=== PATIENT | male | born 1980 | race African-American/Black ===

== ENCOUNTER 2018-06-23 22:53 | Emergency (ER) | payer MEDICAID, OTHER ==
[~2018-06-23] VITALS: Ht 170.2 cm; Wt 88.5 kg
[2018-06-23 23:13] VITALS: BP 120/80
[2018-06-23] MEDS ORDERED: Norco 5mg/325mg tab ORAL ONE (23:15)
[2018-06-24] MEDS ORDERED: HYDROCODON-ACE1 EA15 ORAL (00:26)
[2018-06-24] MEDS ORDERED: IBUPROFEN600 MG ORAL (00:26)
--- NOTE | 2018-06-24 00:27 | Emergency Room Report ---
History of Present Illness General Chief Complaint: Upper Extremity Injury Source: Patient Present Illness HPI Is a 38-year-old male with no cerumen past medical history. He presents with head injury and right wrist pain. He said that he was on the porch try to get something down and fell. He said he hit his head and his right wrist. He said he had a loss of consciousness for split-second. Pain is 9 out of 10. Worse with movement. No nausea no vomiting no fever chills. Denies any other complaint. Allergies: Coded Allergies: No Known Allergies (Unverified , 06/23/18) Patient History Past Medical History: see triage record, old chart reviewed Past Surgical History: other Pertinent Family History: none Social History: Reports: alcohol use Immunizations: other Reviewed Nursing Documentation: PMH: Agreed; PSxH: Agreed Nursing Documentation-PMH Hx Hypertension: Yes Hx Diabetes: Yes Review of Systems Eye: Denies: eye pain, blurred vision ENT: Denies: ear pain, nose congestion, throat swelling Respiratory: Denies: cough, shortness of breath Cardiovascular: Denies: chest pain, palpitations Gastrointestinal: Denies: abdominal pain, diarrhea, nausea, vomiting Musculoskeletal: Reports: joint pain, joint swelling; Denies: back pain Skin: Denies: rash Neurological: Denies: headache, numbness Endocrine: Denies: increased thirst, increased urine Hematologic/Lymphatic: Denies: easy bruising All Other Systems: negative except mentioned in HPI Physical Exam Vital Signs Date Time Temp Pulse Resp B/P (MAP) Pulse Ox O2 Delivery O2 Flow Rate FiO2 06/23/18 22:52 97.8 92 16 120/80 98 Room Air 97.9 vitals normal Sp02 EP Interpretation: reviewed, normal General Appearance: well appearing, no apparent distress, alert Head: normocephalic, other - Small abrasion and hematoma to left forehead Eyes: bilateral eye PERRL, bilateral eye EOMI ENT: hearing grossly normal, normal pharynx Neck: full range of motion, supple, no meningismus Respiratory: chest non-tender, lungs clear, normal breath sounds Cardiovascular #1: regular rate, rhythm, no murmur Gastrointestinal: normal bowel sounds, non tender, no mass, no organomegaly, no bruit, non-distended Musculoskeletal: back normal, gait/station normal, normal range of motion, tender - Right wrist: He has mild edema to the distal radius and tenderness. Pulses normal. Decreased range of motion secondary to pain. Elbow nontender. Fingers nontender. Psychiatric: mood/affect normal Skin: warm/dry Procedures Splinting Splinting : Consent: Verbal Location: Right wrist Pre-Made Type: velcro Splint: volar Pre-Proc Neuro Vasc Exam: normal Post-Proc Neuro Vasc Exam: normal Patient Tolerated: Well Complications: None Medical Decision Making Diagnostic Impression: Primary Impression: Head injury, acute Qualified Codes: S09.90XA - Unspecified injury of head, initial encounter Additional Impression: Sprain of wrist, right Qualified Codes: S63.501A - Unspecified sprain of right wrist, initial encounter ER Course Patient with head injury and wrist pain. No obvious fracture or dislocation. He may have had an old wrist fracture with calcification of distal radius. No new fracture seen. Patient splinted. We'll discharge home. Other X-Ray Diagnostic Results Other X-Ray Diagnostic Results : X-Ray ordered: Right wrist x-rays # of Views/Limited Vs Complete: 4 View Indication: Pain EP Interpretation: Yes Interpretation: no dislocation, no soft tissue swelling, no fractures Impression: No acute disease Electronically Signed by: Rhett Edmonds MD CT/MRI/US Diagnostic Results CT/MRI/US Diagnostic Results : Imaging Test Ordered: Ct head Impression Read by radiologist. No acute fracture. Last Vital Signs Date Time Temp Pulse Resp B/P (MAP) Pulse Ox O2 Delivery O2 Flow Rate FiO2 06/23/18 23:13 97.8 92 16 120/80 98 Room Air 97.8 Status: improved Disposition: HOME, SELF-CARE Condition: Stable Scripts Ibuprofen* (MOTRIN*) 600 Mg Tablet 600 MG ORAL THREE TIMES A DAY, #30 TAB 0 Refills Prov: RHETT EDMONDS M.D. 06/24/18 Hydrocodone/Acetaminophen 5-325* (HYDROCODONE/ACETAMINOPHEN 5-325*) 1 Each Tablet 1 TAB ORAL Q6H PRN for For Pain, #10 TAB 0 Refills Prov: RHETT EDMONDS M.D. 06/24/18 Referrals: [facility],REFERRING (PCP) Additional Instructions: I suspect that area. Follow-up with your doctor in 7 days. Return if worse. RHETT EDMONDS M.D. Jun 24, 2018 00:27
[2018-06-24 00:52] VITALS: BP 125/81
[2018-06-24 00:53] VITALS: BP 125/81
--- NOTE | 2018-06-24 08:54 | Diagnostic Imaging Report ---
Indication: Pain, trauma Technique: Continuous helical CT scanning of the head was performed utilizing automated exposure control without intravenous contrast material. Axial and coronal reconstructions were obtained. Comparison: None CT dose: Total DLP 1428.6 mGycm; CTDI vol 70.38 mGy Findings: There is no acute intracranial hemorrhage, mass effect, midline shift or cortical edema. The ventricles, cisterns and sulci are within normal limits for age. There is a left lamina papyracea fracture which may be chronic. There is mucosal thickening in the left maxillary sinus as well as some bilateral ethmoid air cells. Mastoid air cells are clear. There is no depressed IMPRESSION: No evidence of acute intracranial hemorrhage, mass effect or cortical edema. MRI may be obtained for more sensitive evaluation as clinically indicated. Left lamina papyracea fracture which may be chronic. Correlate clinically. Paranasal sinus disease. This corresponds with the statrad preliminary report. The CT scanner at [facility] is accredited by the [employer] and the scans are performed using protocols designed to limit radiation exposure to as low as reasonably achievable to attain images of sufficient resolution adequate for diagnostic evaluation.
--- NOTE | 2018-06-24 09:01 | Diagnostic Imaging Report ---
Indication: Pain Technique: XRAY Wrist Complete R Comparison: None FINDINGS/IMPRESSION: No definite/displaced acute fracture identified. Alignment and joint spaces are preserved. There is a small well-corticated ossific density projecting adjacent to the ulnar styloid which may represent sequela of prior trauma, likely remote -correlate clinically. No significant soft tissue swelling. No radiopaque foreign body seen.
== END 2018-06-24 00:53 | disposition home or self-care (01) ==
LOC: EDBD 22:53 → EMR 23:43
DX: S09.90XA Unspecified injury of head, initial encounter (principal); S63.501A Unspecified sprain of right wrist, initial encounter; W17.89XA Other fall from one level to another, initial encounter; Y93.89 Activity, other specified; Y92.89 Other specified places as the place of occurrence of the external cause; E11.9 Type 2 diabetes mellitus without complications; I10 Essential (primary) hypertension
CPT/HCPCS: 70450; 99284